=== PATIENT | female | born 1965 | race Two or more races ===

== ENCOUNTER 2024-04-25 20:46 | Emergency (ER) | payer OTHER ==
[~2024-04-25] VITALS: Ht 160 cm; Wt 50.8 kg
[2024-04-25 21:13] VITALS: TEMP 98.5
[2024-04-25] MEDS: IV NS 0.9% 500 ML BAG IV ONE (21:30)
[2024-04-25] MEDS ORDERED: DILTIAZEM HCL 25 MG IV ONE (21:39)
[2024-04-25] MEDS ORDERED: Magnesium 1GM/D5W 100ML PREMIX 100 ML IV ONE (21:39)
[2024-04-25] MEDS: Magnesium 1GM/D5W 100ML PREMIX 100 ML IV SCH (21:40)
[2024-04-25 21:42] LABS: BASOPHILS # (AUTO) 0.1 K/uL (0.0-0.2); BASOPHILS % (AUTO) 1.2 % (0.0-2.0); EOSINOPHILS # (AUTO) 0.1 K/uL (0.0-0.7); EOSINOPHILS % (AUTO) 1.1 % (0.0-6.0); HEMATOCRIT 38 % (33-45); LYMPHOCYTES # (AUTO) 1.5 K/uL (0.8-4.8); MEAN CORPUSCULAR HEMOGLOBIN 37 PG (26.0-33.0); MEAN CORPUSCULAR HGB CONC 34 g/dl (31.0-36.0); MEAN CORPUSCULAR VOLUME 107 fL (82-100); MONOCYTES # (AUTO) 0.7 K/uL (0.1-1.30); MONOCYTES % (AUTO) 12.6 % (2.0-12.0); NEUTROPHILS # (AUTO) 3.3 K/uL (1.8-8.9); NEUTROPHILS % (AUTO) 58.1 % (43.0-81.0); PLATELET COUNT (AUTO) 230 K/uL (150-450); RED BLOOD CELL COUNT(AUTO) 3.54 MIL/uL (4.0-5.2); WHITE BLOOD COUNT (AUTO) 5.7 K/uL (4.3-11.0)
[2024-04-25 21:57] LABS: CARBON DIOXIDE 26 mmol/L (21-32); CHLORIDE 107 mmol/L (98-107); CREATININE 0.7 mg/dL (0.6-1.3); GLUCOSE 81 mg/dL (74-106); POTASSIUM 4.7 mmol/L (3.5-5.1); SODIUM SERUM 144 mmol/L (136-145); UREA NITROGEN, BLOOD 19 mg/dL (7-18)
[2024-04-25] MEDS: DILTIAZEM HCL 50 MG IV IV ONE (22:24)
[2024-04-25 22:30] VITALS: BP 134/90; O2SAT 98
== END 2024-04-25 22:31 ==
LOC: ER 20:48
DX: R00.0 Tachycardia, unspecified (principal); I11.0 Hypertensive heart disease with heart failure; I48.91 Unspecified atrial fibrillation; I50.9 Heart failure, unspecified; Z95.0 Presence of cardiac pacemaker; Z02.89 Encounter for other administrative examinations
CPT/HCPCS: 99285; 96365; 71045; 93005; 85025; 80048; 36415; 84484; J7040; J3475; J3490